=== PATIENT | female | born 1930 | race Caucasian/White ===

== ENCOUNTER 2019-03-01 08:02 | Emergency (ER) | payer OTHER ==
[2019-03-01] MEDS: MUPIROCIN 2% 22 GM OINT TOP (09:21)
[2019-03-01] MEDS ORDERED: MUPIROCIN 2% 15 GM CR TOP (09:30)
== END 2019-03-01 09:40 | disposition home or self-care (01) ==
LOC: E/R 08:02
DX: S81.802A Unspecified open wound, left lower leg, initial encounter (principal); I10 Essential (primary) hypertension; E11.9 Type 2 diabetes mellitus without complications; X58.XXXA Exposure to other specified factors, initial encounter; Y92.9 Unspecified place or not applicable; Z79.84 Long term (current) use of oral hypoglycemic drugs
CPT/HCPCS: 99283; Z7502

== ENCOUNTER → 2019-03-05 | Emergency (ER) | payer MEDICARE, OTHER | END | disposition home or self-care (01) | LOC: E/R 06:59 | DX: L03.116 Cellulitis of left lower limb (principal); I10 Essential (primary) hypertension; E11.9 Type 2 diabetes mellitus without complications; Z79.84 Long term (current) use of oral hypoglycemic drugs | CPT/HCPCS: 99283 ==